=== PATIENT | female | born 1930 | race Caucasian/White ===

== ENCOUNTER 2016-10-30 22:58 | Emergency (ER) | payer MEDICARE, OTHER ==
--- NOTE | 2016-10-31 19:14 | ER ---
ADMIT: 10/30/2016 RM/LOC: ER [facility] MR#: [id number] [address] [id number] ISAMAR BREEN [address] [place] [id number] [facility] Emergency Room Report SEX: F AGE: 86 : 1930 DATE: 10/30/2016 HISTORY OF PRESENT ILLNESS: The patient is an 86-year-old female with a past medical history of food impaction/hypothyroidism, came to the ER with chief complaint of another food impaction. The patient states at 1930, she ate some pork and right away, she felt that there was food impaction in her throat. The patient states she had previous history of food impaction and it was very similar to that one than the previous history. The patient's food impaction was removed by endoscopy allegedly. The patient denied any nausea or vomiting. The patient denied drinking or eating after the incident. Food impaction allegedly happened at 7:30 p.m. PHYSICAL EXAMINATION: VITAL SIGNS: In the ER, the patient is alert, oriented, in no obvious pain or distress. There is no drooling. There is no change in voice. The patient is not nauseous. VITAL SIGNS: Normal. HEAD AND NECK: Noncontributory. CHEST: Clear bilaterally. ABDOMEN: The patient has soft abdomen. The rest of the physical exam is noncontributory. IMAGING DATA: Chest x-ray was negative for any abnormalities. PLAN: The patient drank fluid and states she believes the food impaction is completely resolved. The patient was observed, did not develop any new symptoms, tolerated p.o., is stable for discharge. Flaco Craven MD/ gary JOB #: [id number] CC: Flaco Craven MD, Attending Physician Jennifer Murphy MD, Family Physician
== END 2016-10-31 00:45 | disposition home or self-care (01) ==
LOC: ER 22:58
DX: Z03.89 Encounter for observation for other suspected diseases and conditions ruled out (principal); E03.9 Hypothyroidism, unspecified